=== PATIENT | male | born 1995 | race Caucasian/White ===

== ENCOUNTER 2017-01-03 19:59 | Emergency (ER) | payer MEDICAID ==
[2017-01-03 20:14] VITALS: BP 115/80
[2017-01-03] MEDS ORDERED: Ketorolac 10 MG Tab PO ONE (20:35)
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
== END 2017-01-03 20:36 | disposition home or self-care (01) ==
LOC: FB.ED 19:59
DX: M75.42 Impingement syndrome of left shoulder (principal); Z88.6 Allergy status to analgesic agent
CPT/HCPCS: 99282; A9270-GY

== ENCOUNTER 2017-11-19 19:07 | Emergency (ER) | payer BC, MEDICAID ==
[2017-11-19] MEDS ORDERED: Ibuprofen 800 MG Tab PO ONE (19:51)
[2017-11-19] MEDS ORDERED: Acetaminophen 500 MG Tab PO ONE (19:51)
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
[2017-11-19 20:23] VITALS: BP 116/68
--- NOTE | 2017-11-20 11:46 | CR ---
INDICATION: Base of left 4th finger struck by a door. LEFT FOURTH FINGER: Three views of the left 4th finger revealed no evidence of a fracture, dislocation, or other significant bone or joint abnormality. [facility]
== END 2017-11-19 20:22 | disposition home or self-care (01) ==
LOC: FB.ED 19:07
DX: S63.8X2A Sprain of other part of left wrist and hand, initial encounter (principal); S60.042A Contusion of left ring finger without damage to nail, initial encounter; S60.032A Contusion of left middle finger without damage to nail, initial encounter; F17.210 Nicotine dependence, cigarettes, uncomplicated; Z88.5 Allergy status to narcotic agent; W22.8XXA Striking against or struck by other objects, initial encounter
CPT/HCPCS: 73140; 99283; A9270